=== PATIENT | male | born 1965 | race African-American/Black ===

== ENCOUNTER 2020-02-29 04:34 | Emergency (ER) | payer MEDICAID, OTHER ==
[~2020-02-29] VITALS: Ht 180.3 cm; Wt 95.5 kg
[2020-02-29 05:05] LABS: BASO # 0.1 x10^3/uL (0.0-0.2); BASO % 1 % (0-3); EOS % 0 % (0-3); HEMATOCRIT 37.9 % (39.0-53.0); HEMOGLOBIN 12.5 g/dL (13.0-17.5); LYMPH # 1.8 x10^3/uL (1.0-4.8); LYMPH % 10 % (24-48); MEAN CORPUSCULAR HEMOGLOBIN 27 pg (25-35); MEAN CORPUSCULAR HGB CONC 33 g/dL (31-37); MEAN CORPUSCULAR VOLUME 82 fL (79-100); MONO # 1.9 x10^3/uL (0.0-1.1); MONO % 11 % (0-9); NEUT # 14.4 x10^3/uL (1.8-7.7); NEUT % 79 % (31-73); PLATELET COUNT 237 x10^3/uL (140-400); RED BLOOD COUNT 4.62 x10^6/uL (4.30-5.70); RED CELL DISTRIBUTION WIDTH 15.4 % (11.5-14.5); WHITE BLOOD COUNT 18.3 x10^3/uL (4.0-11.0)
[2020-02-29 05:21] LABS: CALCIUM 9.4 mg/dL (8.5-10.1); CREATININE 1.3 mg/dL (0.7-1.3); GFR 69.3; POTASSIUM 3.3 mmol/L (3.5-5.1)
[2020-02-29 05:27] LABS: ALBUMIN 3.2 g/dL (3.4-5.0); ALBUMIN/GLOBULIN RATIO 0.9 (1.0-1.7); TOTAL BILIRUBIN 0.7 mg/dL (0.2-1.0); TOTAL PROTEIN 6.6 g/dL (6.4-8.2)
[2020-02-29] MEDS ORDERED: DEXAMETHASONE SOD PHOS 20 MG/5 ML VIAL. IV ONE (05:30)
[2020-02-29 05:35] LABS: INFLUENZA A PATIENT NEGATIVE (NEGATIVE); INFLUENZA B PATIENT NEGATIVE (NEGATIVE)
--- NOTE | 2020-02-29 06:18 | PHYS DOC ---
Past Medical History Past Medical History: Asthma, COPD, Diabetes-Type I, High Cholesterol, Hypertension (SUKHDEEP NEW DO) Past Surgical History: No Surgical History Additional Past Surgical Histo: kidney stone removal; skin graft to left leg; intubation (SUKHDEEP NEW DO) Smoking Status: Former Smoker Alcohol Use: None Drug Use: None (SUKHDEEP NEW DO) General Adult EDM: Chief Complaint: DYSPNEA/RESPIRATORY DISTRESS HPI: HPI: Patient is a 54 year old [f__sex] who presents with [] (SUKHDEEP NEW DO) Review of Systems: Review of Systems: Constitutional: Denies fever or chills. [] Eyes: Denies change in visual acuity. [] HENT: Denies nasal congestion or sore throat. [] Respiratory: Denies cough or shortness of breath. [] Cardiovascular: Denies chest pain or edema. [] GI: Denies abdominal pain, nausea, vomiting, bloody stools or diarrhea. [] : Denies dysuria. [] Musculoskeletal: Denies back pain or joint pain. [] Integument: Denies rash. [] Neurologic: Denies headache, focal weakness or sensory changes. [] Endocrine: Denies polyuria or polydipsia. [] Lymphatic: Denies swollen glands. [] Psychiatric: Denies depression or anxiety. [] (SUKHDEEP NEW DO) Heart Score: Risk Factors: Risk Factors: DM, Current or recent (<one month) smoker, HTN, HLP, family history of CAD, obesity. Risk Scores: Score 0 - 3: 2.5% MACE over next 6 weeks - Discharge Home Score 4 - 6: 20.3% MACE over next 6 weeks - Admit for Clinical Observation Score 7 - 10: 72.7% MACE over next 6 weeks - Early Invasive Strategies (SUKHDEEP NEW DO) Current Medications: Current Medications Medications (Trade) Dose Ordered Sig/Kristin Start Time Stop Time Status Last Admin Dose Admin Azithromycin 250 ml @ 250 mls/hr 1X ONCE 02/29/20 06:30 02/29/20 07:29 Ceftriaxone Sodium (Rocephin) 1 gm 1X ONCE 02/29/20 06:30 02/29/20 06:31 Dexamethasone Sodium Phosphate (Decadron) 10 mg 1X ONCE 02/29/20 05:30 02/29/20 05:31 DC 1/20/21 05:23 10 MG Guaifenesin (Mucinex) 600 mg 1X ONCE 02/29/20 05:30 02/29/20 05:31 DC 02/29/20 05:23 600 MG Ketorolac Tromethamine (Toradol 15mg Vial) 15 mg 1X ONCE 02/29/20 06:15 02/29/20 06:16 [facility] Allergies: Allergies: Allergies Coded Allergies Type Severity Reaction Last Updated Verified No Known Drug Allergies 05/30/13 No ([facility] Physical Exam: PE: Constitutional: Well developed, well nourished, no acute distress, non-toxic appearance. HENT: Normocephalic, atraumatic, Eyes: EOMI, conjunctiva normal, no discharge. Neck: Normal range of motion, supple, Cardiovascular: S1/2 present, regular rhythm Lungs & Thorax: Speaking in full sentences, bilateral equal chest rise, no tachypnea or increased work of breathing Abdomen: soft, no tenderness, Skin: Warm, dry, no erythema, no rash. [] Back: No tenderness, no CVA tenderness. [] Extremities: No tenderness, no cyanosis, no edema Neurologic: Alert and oriented X 3, normal motor function, normal sensory function, no focal deficits noted. [] Psychologic: Affect normal, judgement normal, mood normal. [] [facility] Current Patient Data: Labs: Laboratory Tests Test 02/29/20 04:47 02/29/20 05:00 White Blood Count 18.3 x10^3/uL (4.0-11.0) H Red Blood Count 4.62 x10^6/uL (4.30-5.70) Hemoglobin 12.5 g/dL (13.0-17.5) L Hematocrit 37.9 % (39.0-53.0) L Mean Corpuscular Volume 82 fL (79-100) Mean Corpuscular Hemoglobin 27 pg (25-35) Mean Corpuscular Hemoglobin Concent 33 g/dL (31-37) Red Cell Distribution Width 15.4 % (11.5-14.5) H Platelet Count 237 x10^3/uL (140-400) Neutrophils (%) (Auto) 79 % (31-73) H Lymphocytes (%) (Auto) 10 % (24-48) L Monocytes (%) (Auto) 11 % (0-9) H Eosinophils (%) (Auto) 0 % (0-3) Basophils (%) (Auto) 1 % (0-3) Neutrophils # (Auto) 14.4 x10^3/uL (1.8-7.7) H Lymphocytes # (Auto) 1.8 x10^3/uL (1.0-4.8) Monocytes # (Auto) 1.9 x10^3/uL (0.0-1.1) H Eosinophils # (Auto) 0.0 x10^3/uL (0.0-0.7) Basophils # (Auto) 0.1 x10^3/uL (0.0-0.2) Platelet Estimate Pending Sodium Level 141 mmol/L (136-145) Potassium Level 3.3 mmol/L (3.5-5.1) L Chloride Level 102 mmol/L (98-107) Carbon Dioxide Level 28 mmol/L (21-32) Anion Gap 11 (6-14) Blood Urea Nitrogen 19 mg/dL (8-26) Creatinine 1.3 mg/dL (0.7-1.3) Estimated GFR (Cockcroft-Gault) 69.3 BUN/Creatinine Ratio 15 (6-20) Glucose Level 176 mg/dL (70-99) H Calcium Level 9.4 mg/dL (8.5-10.1) Total Bilirubin 0.7 mg/dL (0.2-1.0) Aspartate Amino Transferase (AST) 10 U/L (15-37) L Alanine Aminotransferase (ALT) 20 U/L (16-63) Alkaline Phosphatase 62 U/L (46-116) Total Protein 6.6 g/dL (6.4-8.2) Albumin 3.2 g/dL (3.4-5.0) L Albumin/Globulin Ratio 0.9 (1.0-1.7) L Influenza Type A Antigen Negative (NEGATIVE) Influenza Type B Antigen Negative (NEGATIVE) Laboratory Tests 02/29/20 04:47 Laboratory Tests 02/29/20 04:47 Vital Signs: Vital Signs Date Time Temp Pulse Resp B/P (MAP) Pulse Ox O2 Delivery O2 Flow Rate FiO2 02/29/20 04:35 97.7 74 20 173/99 (123) 99 Room Air 97.7 (SUKHDEEP NEW DO) EKG: EKG: [] (SUKHDEEP NEW DO) Radiology/Procedures: Radiology/Procedures: []IMAGING REPORT Signed PATIENT: VIDA CALDERA NACCOUNT: [id number] : 1965 LOCATION: ER AGE: 54 SEX: M EXAM STATUS: REG ER ORD. PHYSICIAN: SUKHDEEP NEW DO REASON: sore throat, pui PROCEDURE: CHEST AP ONLY EXAM: XR CHEST 1V 02/29/2020 5:01 AM CLINICAL INDICATION: Sore throat, person under investigation COMPARISON: Chest radiograph 08/08/2015 TECHNIQUE: AP upright view of the chest FINDINGS: The heart is at the upper limit of normal in size. Lungs are adequ ately expanded. There is a new 1.3 cm nodular density in the left lung base. Lungs otherwise clear. No pleural effusion or pneumothorax. No acute osseous abnormality. IMPRESSION: 1. No definite pneumonia. 2. 1.3 cm nodule in the left lung bases, nonspecific. CT could be obtained to evaluate for pulmonary nodule. Electronically signed by: Socorro Stafford MD (02/29/2020 6:20 AM) [id number] DICTATED and SIGNED BY: SOCORRO STAFFORD MD DATE: 02/29/20 [id number] (SUKHDEEP NEW DO) Course & Med Decision Making: Course & Med Decision Making Pertinent Labs and Imaging studies reviewed. (See chart for details) [] (SUKHDEEP NEW DO) Course & Med Decision Making Assumed care of patient at checkout from prior physician. At checkout patient had some lab work pending. He does have an elevated white blood cell count however the rest of his work-up is unremarkable. Given patient's long history of respiratory issues it is possible that he has a pneumonia that is not yet seen on chest x-ray. Given this we will treat him with antibiotics here in the emergency room. Patient is feeling better and would like to go home. He will be discharged home on a steroid burst and antibiotics. Patient's test results and vitals while in the ED were fully reviewed and discussed with the patient. Patient is stable and at this time does not need admission to the hospital. We have discussed strict return precautions and the importance of following up with their Primary Care Physician. Patient stated understanding and was given an opportunity to ask any questions. Patient is in agreement with plan. (PETER SHAH MD) Dragon Disclaimer: Dragon Disclaimer: This electronic medical record was generated, in whole or in part, using a voice recognition dictation system. (SUKHDEEP NEW DO) Departure Departure Impression: Primary Impression: Sore throat Additional Impressions: Pneumonia COPD (chronic obstructive pulmonary disease) Disposition: 01 DC HOME SELF CARE/HOMELESS Condition: IMPROVED Referrals: NO PCP (PCP) Patient Instructions: Pneumonia, Adult Scripts Cetirizine Hcl (ZYRTEC) 10 Mg Tablet 1 TAB PO DAILY for 10 Days, #10 TAB 0 Refills Prov: PETER SHAH MD 02/29/20 Methylprednisolone (MEDROL) 4 Mg Tab.ds.pk 1 PKG PO UD for inflammation, #1 PKG Prov: PETER SHAH MD 02/29/20 Azithromycin (ZITHROMAX) 250 Mg Tablet 1 PKG PO UD, #6 TAB Prov: PETER SHAH MD 02/29/20 SUKHDEEP NEW DO Feb 29, 2020 06:18 PETER SHAH MD Feb 29, 2020 08:08
--- NOTE | 2020-02-29 06:22 | RAD ---
EXAM: XR CHEST 1V 02/29/2020 5:01 AM CLINICAL INDICATION: Sore throat, person under investigation COMPARISON: Chest radiograph 08/08/2015 TECHNIQUE: AP upright view of the chest FINDINGS: The heart is at the upper limit of normal in size. Lungs are adequately expanded. There is a new 1.3 cm nodular density in the left lung base. Lungs otherwise clear. No pleural effusion or pn eumothorax. No acute osseous abnormality. IMPRESSION: 1. No definite pneumonia. 2. 1.3 cm nodule in the left lung bases, nonspecific. CT could be obtained to evaluate for pulmonary nodule. Electronically signed by: Katja Stafford MD (02/29/2020 6:20 AM) [id number]
[2020-02-29] MEDS ORDERED: KETOROLAC 15 MG/ML VIAL. IVP ONE (06:30)
[2020-02-29] MEDS ORDERED: AZITHRMYCN 500MG IVPB FOR OMNI 250 ML IV ONE (06:30)
[2020-02-29] MEDS ORDERED: cefTRIAXone IV Push 1 GM VIAL. IVP ONE (06:30)
[2020-02-29 07:13] LABS: BILIRUBIN,URINE NEGATIVE (NEG); CLARITY,URINE TURBID; COLOR,URINE YELLOW; NITRITE,URINE NEGATIVE (NEG); PH,URINE 7.5 (<5.0-8.0); PROTEIN,URINE NEGATIVE (NEG-TRACE)
[2020-02-29 07:35] LABS: BACTERIA,URINE FEW /HPF (0-FEW); RBC,URINE OCC /HPF (0-2); WBC,URINE RARE /HPF (0-4)
[2020-02-29 07:59] LABS: % BANDS 2 % (0-9); % EOS 1 % (0-5); % LYMPHS 17 % (24-48); % MONOS 4 % (0-10); % SEGS 76 % (35-66); PLT ESTIMATE ADEQUATE (ADEQUATE)
[2020-02-29] MEDS ORDERED: METH4TAB2 PO (08:08)
[2020-02-29] MEDS ORDERED: AZIT250T PO (08:08)
[2020-02-29] MEDS ORDERED: CETI10TA74 PO (08:08)
[2020-02-29 08:21] VITALS: BP 135/85
== END 2020-02-29 08:41 | disposition home or self-care (01) ==
LOC: ER 04:34
DX: J18.9 Pneumonia, unspecified organism (principal); J44.9 Chronic obstructive pulmonary disease, unspecified; J02.9 Acute pharyngitis, unspecified; Z20.828 Contact with and (suspected) exposure to other viral communicable diseases; E10.9 Type 1 diabetes mellitus without complications; E78.00 Pure hypercholesterolemia, unspecified; I10 Essential (primary) hypertension; Z87.891 Personal history of nicotine dependence
CPT/HCPCS: 36415; 71045; 80053; 81001; 83605; 84484; 85007; 85025; 87070; 87804; 87880; 93005; 96365; 96366; 96375; 99285; C9803; J0456; J0696; J1100; J1885; U0003